=== PATIENT | male | born 1975 | race Caucasian/White ===

== ENCOUNTER 2019-04-28 13:18 | Emergency (ER) | payer OTHER ==
[~2019-04-28] VITALS: Ht 175.3 cm; Wt 83.9 kg
[2019-04-28] MEDS ORDERED: NORCO 5-325 TA1 EAC1 PO (15:05)
[2019-04-28] MEDS ORDERED: IBUPROFEN 800800 M1 PO (15:05)
[2019-04-28] MEDS ORDERED: KEFLEX500 M1 PO (15:06)
[2019-04-28 15:46] VITALS: BP 141/79
== END 2019-04-28 15:46 | disposition home or self-care (01) ==
LOC: M.ERS 13:18
DX: S61.202A Unspecified open wound of right middle finger without damage to nail, initial encounter (principal); W26.9XXA Contact with unspecified sharp object(s), initial encounter; Y93.89 Activity, other specified; Y92.89 Other specified places as the place of occurrence of the external cause; Y99.8 Other external cause status